=== PATIENT | male | born 1995 | race African-American/Black ===

== ENCOUNTER 2024-11-21 11:42 | Emergency (ER) | payer OTHER ==
[~2024-11-21] VITALS: Ht 182.9 cm; Wt 136.1 kg
[2024-11-21 11:44] VITALS: BP 138/84; TEMP 98.3
[2024-11-21] MEDS ORDERED: CARB15DR12 EACH EAR (11:59)
[2024-11-21 12:12] VITALS: O2SAT 100
== END 2024-11-21 12:13 | disposition home or self-care (01) ==
LOC: ER 11:46
DX: H61.22 Impacted cerumen, left ear (principal)